=== PATIENT | male | born 1945 | race Caucasian/White ===

== ENCOUNTER → 2021-09-08 10:08 | Outpatient (CLI) | payer MEDICARE, OTHER, SELFPAY | PROVIDERS: Visit Provider Ophthalmology | DX: Z01.812 Encounter for preprocedural laboratory examination (principal); Z11.52 Encounter for screening for COVID-19 | CPT/HCPCS: C9803; U0003; U0005 ==

== ENCOUNTER 2021-09-11 10:10 | Day surgery (SDC) | payer MEDICARE, OTHER, SELFPAY ==
[2021-09-06 14:57] VITALS: BMI 29.5
[2021-09-11 11:01] VITALS: BP 156/88; PULSE 73; RESP 18; TEMP 36.9; O2SAT 97
[2021-09-11 12:26] VITALS: BP 187/82; PULSE 67; RESP 16; O2SAT 98
[2021-09-11 12:31] VITALS: BP 148/67; PULSE 66; RESP 16; O2SAT 98
[2021-09-11 12:36] VITALS: BP 149/70; PULSE 64; RESP 16; O2SAT 100
[2021-09-11 12:41] VITALS: BP 146/72; PULSE 63; RESP 16; O2SAT 100
[2021-09-11 12:45] VITALS: BP 129/69; PULSE 65; RESP 16; TEMP 36.7; O2SAT 99
== END 2021-09-11 12:55 | disposition home or self-care (01) ==
LOC: OR 10:14
PROVIDERS: Visit Provider Ophthalmology
DX: H25.813 Combined forms of age-related cataract, bilateral (principal); H02.831 Dermatochalasis of right upper eyelid; H02.834 Dermatochalasis of left upper eyelid; H53.149 Visual discomfort, unspecified; M19.90 Unspecified osteoarthritis, unspecified site; F32.A Depression, unspecified; I10 Essential (primary) hypertension; Z79.899 Other long term (current) drug therapy; Z88.2 Allergy status to sulfonamides
CPT/HCPCS: 66984; V2632

== ENCOUNTER → 2021-10-06 11:42 | Outpatient (CLI) | payer MEDICARE, OTHER, SELFPAY | PROVIDERS: Visit Provider Ophthalmology | DX: Z01.812 Encounter for preprocedural laboratory examination (principal); U07.1 COVID-19 | CPT/HCPCS: C9803; U0003; U0005 ==

== ENCOUNTER 2021-11-20 10:58 | Day surgery (SDC) | payer MEDICARE, OTHER, SELFPAY ==
[2021-11-14 13:28] VITALS: BMI 29.5
[2021-11-20] VITALS (7 sets, daily range): BP systolic 115–156; BP diastolic 66–77; PULSE 66–73; RESP 16–20; TEMP 36.4–36.6; O2SAT 95–100
== END 2021-11-20 14:50 | disposition home or self-care (01) ==
LOC: OR 10:59
PROVIDERS: Visit Provider Ophthalmology
DX: H25.813 Combined forms of age-related cataract, bilateral (principal); H02.831 Dermatochalasis of right upper eyelid; H02.834 Dermatochalasis of left upper eyelid; M19.90 Unspecified osteoarthritis, unspecified site; F32.A Depression, unspecified; I10 Essential (primary) hypertension; Z88.2 Allergy status to sulfonamides
CPT/HCPCS: 66984; V2632